=== PATIENT | male | born 1965 | race Caucasian/White ===

== ENCOUNTER 2019-08-02 08:07 | Emergency (ER) | payer BC ==
[2019-08-02 08:39] VITALS: BP 148/90
--- NOTE | 2019-08-02 08:54 | UC ---
Skin Complaint HPI - HPI Summary HPI Summary: tick bite right lower back area x 2 days tick was removed by the pt. denies any fever, no chills, no body aches, no joint pain no rash - History of Current Complaint Chief Complaint: UCSkin Time Seen by Provider: 08/02/19 08:46 Stated Complaint: TYPE 2 DIABETIC-TICK BITE Hx Obtained From: Patient Onset/Duration: Gradual Onset, Lasting Days - 2, Resolved Timing: Constant Onset Severity: Moderate Current Severity: Moderate Pain Intensity: 0 Location: Discrete - right lower back Character: Redness Aggravating Factor(s): Nothing Alleviating Factor(s): Nothing Associated Signs & Symptoms: Positive: Negative. Negative: Nausea, Vomiting, Weakness, Fever, Chills, Tenderness, Red Streaks Related History: Insect Bite/Sting - tick bite - Allergy/Home Medications Allergies/Adverse Reactions: Allergies Allergy/AdvReac Type Severity Reaction Status Date / Time seasonal allergies Allergy Difficulty Uncoded 08/02/19 08:31 Breathing/Wheezing Home Medications: Home Medications LevoCETirizine TAB (NF) [Xyzal TAB (NF)] 1 tab PO DAILY 08/02/19 [History Confirmed 08/02/19] PMH/Surg Hx/FS Hx/Imm Hx Endocrine History: Diabetes Respiratory History: Asthma - Surgical History Surgical History: Yes Surgery Procedure, Year, and Place: sports related right elbow. Appendectomy as child - Family History Known Family History: Positive: Hypertension - Social History Alcohol Use: None Substance Use Type: None Smoking Status (MU): Never Smoked Tobacco - Immunization History Most Recent Tetanus Shot: unknown, question if within last 5 years Review of Systems All Other Systems Reviewed And Are Negative: Yes Constitutional: Positive: Negative Eyes: Positive: Negative ENT: Positive: Negative Is Patient Immunocompromised?: No Physical Exam Triage Information Reviewed: Yes Appearance: Well-Appearing, No Pain Distress, Well-Nourished Vital Signs: Initial Vital Signs Temp 98.1 F 08/02/19 08:33 Pulse 96 08/02/19 08:33 Resp 16 08/02/19 08:33 BP 148/90 08/02/19 08:33 Pulse Ox 99 08/02/19 08:33 Vital Signs Reviewed: Yes Eye Exam: Normal Eyes: Positive: Conjunctiva Clear ENT: Positive: Normal ENT inspection, Hearing grossly normal, Pharynx normal Neck: Positive: Supple, Nontender, No Lymphadenopathy Respiratory Exam: Normal Respiratory: Positive: Chest non-tender, Lungs clear, Normal breath sounds Cardiovascular: Positive: RRR, No Murmur, Pulses Normal Skin: Positive: Other - tick site right lower back , tick was removed by the pt. Course/Dx - Diagnoses Provider Diagnosis: Tick bite of lower back Discharge ED - Sign-Out/Discharge Documenting (check all that apply): Patient Departure All imaging exams completed and their final reports reviewed: No Studies - Discharge Plan Condition: Stable Disposition: HOME Prescriptions: DOXYcycline CAP(*) [DOXYcycline 100MG CAP(*)] 200 mg PO DAILY #2 cap Patient Education Materials: Tick Bite (ED) Referrals: Oscar Mehta MD [Primary Care Provider] - - Billing Disposition and Condition Condition: STABLE Disposition: Home
== END 2019-08-02 09:01 | disposition home or self-care (01) ==
LOC: UCCORT 08:07
DX: S30.860A Insect bite (nonvenomous) of lower back and pelvis, initial encounter (principal); E11.9 Type 2 diabetes mellitus without complications; J45.909 Unspecified asthma, uncomplicated; Z91.09 Other allergy status, other than to drugs and biological substances; W57.XXXA Bitten or stung by nonvenomous insect and other nonvenomous arthropods, initial encounter; Y92.9 Unspecified place or not applicable
CPT/HCPCS: 99212; G0463